=== PATIENT | male | born 1985 | race Caucasian/White ===

== ENCOUNTER 2025-09-17 22:22 | Observation (INO) | payer SELFPAY ==
[2025-09-17 23:43] LABS: #Basophils 0.06 10x3/uL (0.0-0.2); #Eosinophils 0.12 10x3/uL (0.0-0.7); #Monocytes 0.46 10x3/uL (0.11-0.59); #Neutrophils 10.81 10x3/uL (1.40-6.50); %Basophils 0.4 % (0.0-1.0); %Eosinophils 0.9 % (0.0-10.0); %Lymphocytes 15.8 % (21.0-51.0); %Monocytes 3.4 % (0.0-10.0); %Neutrophils 79.2 % (42.0-75.0); Hematocrit 44.9 % (42.0-52.0); Hemoglobin 14.8 g/dL (14.0-18.0); Mean Corpuscular Hemoglobin 28.6 pg (27.0-31.0); Mean Corpuscular Volume 86.7 fL (78.0-98.0); Platelet Count 380 10x3/uL (130-400); Red Blood Cell (RBC) Count 5.18 mill/uL (4.70-6.10); White Blood Cell (WBC) Count 13.65 10x3/uL (4.8-10.8)
[2025-09-17 23:56] LABS: INR-International Normal Ratio 1.1; PTT 23.0 sec (22.9-36.1); Prothrombin Time 14.5 sec (12.0-14.7)
[2025-09-17 23:57] LABS: Acetaminophen Less than 10 mcg/mL (Less than 10); Salicylate Less than 8.0 mg/dL (Less than 8.0)
[2025-09-18 00:09] LABS: ALT (SGPT) 55 U/L (Less than 45); AST (SGOT) 41 U/L (11-34); Albumin 4.7 g/dL (3.1-4.5); Alkaline Phosphatase 41 U/L (40-110); Anion Gap 16 mmol/L (10-20); BUN (Urea Nitrogen) 10 mg/dL (8.9-20.6); Bilirubin, Total 0.3 mg/dL (0.3-1.2); Calc. Creatinine Clearance 0 mL/min (70-130); Calcium 8.8 mg/dL (7.8-10.44); Carbon Dioxide 19 mmol/L (22-29); Chloride 109 mmol/L (98-107); Globulin 2.3 g/dL (2.4-3.5); Glucose 114 mg/dL (70-105); Potassium 4.4 mmol/L (3.5-5.1); Sodium 140 mmol/L (136-145)
[2025-09-18] MEDS ORDERED: Ondansetron PF 4 MG/2 ML Vial ONE ×2 (01:10→16:10)
[2025-09-18] MEDS ORDERED: Ketorolac Tromethamine 30 MG (1 mL) VIAL ONE ×4 (01:10→16:10)
[2025-09-18] MEDS ORDERED: Ondansetron PF 4 MG/2 ML Vial SLOW IVP PRN (02:15)
[2025-09-18] MEDS ORDERED: Communication Order-Pharmacy FS SCH ×2 (02:15→17:30)
[2025-09-18 04:06] VITALS: BMI 26.6
[2025-09-18] MEDS ORDERED: HYDROcodone/Acetaminophen 10/325 mg Tablet ONE (05:02)
[2025-09-18] MEDS: HYDROcodone/Acetaminophen 10/325 mg Tablet PO PRN (05:04)
[2025-09-18] MEDS: TETANUS, DIPHTHERIA TOX,ADULT (TDVAX) 0.5 ML VIAL IM ONE (06:15)
[2025-09-18] MEDS: Ketorolac Tromethamine 30 MG (1 mL) VIAL IVP SCH (06:17)
[2025-09-18] MEDS ORDERED: Famotidine/PF 20 mg/2ml Vial ONE (15:17)
[2025-09-18] MEDS ORDERED: PROPOFOL 20 ML ONE (15:32)
[2025-09-18] MEDS ORDERED: CEFAZOLIN 1 GM VIAL ONE (15:44)
[2025-09-19 08:04] LABS: #Basophils Less than 0.03 10x3/uL (0.0-0.2); #Eosinophils Less than 0.03 10x3/uL (0.0-0.7); #Monocytes 1.13 10x3/uL (0.11-0.59); #Neutrophils 10.88 10x3/uL (1.40-6.50); %Basophils 0.1 % (0.0-1.0); %Eosinophils 0.0 % (0.0-10.0); %Lymphocytes 10.2 % (21.0-51.0); %Monocytes 8.4 % (0.0-10.0); %Neutrophils 80.8 % (42.0-75.0); Hematocrit 36.9 % (42.0-52.0); Hemoglobin 12.4 g/dL (14.0-18.0); Mean Corpuscular Hemoglobin 29.2 pg (27.0-31.0); Mean Corpuscular Volume 87.0 fL (78.0-98.0); Platelet Count 291 10x3/uL (130-400); Red Blood Cell (RBC) Count 4.24 mill/uL (4.70-6.10); White Blood Cell (WBC) Count 13.47 10x3/uL (4.8-10.8)
[2025-09-19 08:17] VITALS: TEMP 97.9
[2025-09-19 15:59] VITALS: BP 117/71
[2025-09-19] MEDS ORDERED: Aspirin 81 mg Enteric Coated Tablet PO SCH (21:00)
[2025-09-21] MEDS ORDERED: FLU (Fluarix Triv) 25-26 (6MOS UP)/PF 45 MCG/0.5 ML Syringe IM ONE (09:00)
== END 2025-09-19 16:04 | disposition home or self-care (01) ==
LOC: ERS 22:22 → ERHOLD 09-18 02:15 → T4-B 09-18 16:52
PROVIDERS: ADMIT Orthopaedic Surgery; ATTEND Orthopaedic Surgery
PROC: 0QSG06Z Reposition Right Tibia with Intramedullary Internal Fixation Device, Open Approach (ICD-10-PCS; principal; 2025-09-18)
DX: S82.231A Displaced oblique fracture of shaft of right tibia, initial encounter for closed fracture (principal); I10 Essential (primary) hypertension; E11.9 Type 2 diabetes mellitus without complications; X50.1XXA Overexertion from prolonged static or awkward postures, initial encounter
CPT/HCPCS: 36415; 80053; 80307; 85025; 85610; 85730; 90714; 90715; 96374; 96375; 96376; G0378; J0169; J0665; J0690; J1100; J1308; J1885; J2270; J2272; J2405; J2704; J3010